=== PATIENT | female | born 1990 | race Caucasian/White ===

== ENCOUNTER 2017-05-09 05:30 | Inpatient (IN) | payer MEDICAID ==
[~2017-05-09] VITALS: Ht 157.5 cm; Wt 87.6 kg
[2017-05-09 06:09] LABS: BASOPHILS # (AUTO) 0.02 K/uL (0.00-0.20); BASOPHILS % (AUTO) 0.3 % (0.0-2.0); EOSINOPHILS # (AUTO) 0.16 K/uL (0.00-0.70); EOSINOPHILS % (AUTO) 1.95 % (1.0-6.0); HEMATOCRIT 38.3 % (36-46); LYMPHOCYTES # (AUTO) 1.8 K/uL (1.0-4.8); MEAN CORPUSCULAR HEMOGLOBIN 28.2 pg (26.0-34.0); MEAN CORPUSCULAR VOLUME 83 fL (80-100); MONOCYTES # (AUTO) 0.4 K/uL (0.1-1.0); MONOCYTES % (AUTO) 5.1 % (2.0-9.0); NEUTROPHILS # (AUTO) 5.8 K/uL (1.8-7.7); NEUTROPHILS % (AUTO) 70.7 % (40.0-70.0); PLATELET COUNT (AUTO) 169 K/uL (150-450); RED BLOOD CELL COUNT(AUTO) 4.62 MIL/uL (4.00-5.20); RED CELL DISTRIBUTION WIDTH 16.7 % (11.5-14.5)
[2017-05-09 06:15] LABS: ANION GAP 6 mmol/L (8-16); CALCIUM, TOTAL 9.1 mg/dL (8.8-10.5); CARBON DIOXIDE 28 mmol/L (22-29); CHLORIDE 102 mmol/L (98-107); CREATININE 0.74 mg/dL (0.60-1.30); GLOMERULAR FILTR. RATE CALC > 60 mL/min (>60); GLUCOSE,RANDOM 94 mg/dL (70-110); POTASSIUM 4.2 mmol/L (3.5-5.1); SODIUM SERUM 136 mmol/L (136-145); UREA NITROGEN, BLOOD 13 mg/dL (7-18)
[2017-05-09 06:19] LABS: ALANINE AMINOTRANSFERASE 32 U/L (12-78); ALBUMIN 3.8 g/dL (3.4-5.0); ALKALINE PHOSPHATASE 82 U/L (46-116); ASPARTATE AMINOTRANSFERASE 20 U/L (15-37); BILIRUBIN,TOTAL 0.7 mg/dL (0.1-1.0)
[2017-05-09 07:22] LABS: AMPHET/METH SCREEN,URINE NEGATIVE (NEGATIVE); BARBITURATE SCREEN, URINE NEGATIVE (NEGATIVE); BENZODIAZEPINES SCREEN,URINE NEGATIVE (NEGATIVE); CANNABINOID SCREEN,URINE POSITIVE (NEGATIVE); COCAINE SCREEN,URINE NEGATIVE (NEGATIVE); METHADONE SCREEN, URINE NEGATIVE (NEGATIVE); OPIATE SCREEN,URINE NEGATIVE (NEGATIVE)
[2017-05-09 07:27] LABS: PHENCYCLIDINE SCREEN,URINE NEGATIVE (NEGATIVE)
[2017-05-09] MEDS ORDERED: ZOLPIDEM TARTRATE 10 MG TABLET PO PRN (08:15)
[2017-05-09] MEDS ORDERED: HALOPERIDOL 5 MG TABLET PO PRN (08:15)
[2017-05-09 13:44] VITALS: BP 114/80
[2017-05-09] MEDS ORDERED: PNEUMOCOCCAL VACCINE POLYVALENT 0.5 ML VIAL [PPSV23] IM ONE (15:15)
[2017-05-09] MEDS ORDERED: INFLUENZA VIRUS VACCINE QVS 2017-18 (3YR+)/PF 60 MCG/0.5 ML SYRINGE IM ONE (15:15)
[2017-05-09 16:00] VITALS: BP 116/70
[2017-05-09] MEDS ORDERED: PETROLATUM,WHITE 71 GM JELLY TP PRN (20:45)
[2017-05-10 00:42] VITALS: BP 119/71
[2017-05-10 08:33] VITALS: BP 115/63
[2017-05-10 09:11] LABS: CHOL/HDL RATIO 3.8 (3.9-5.7)
[2017-05-10 16:00] VITALS: BP 114/71
[2017-05-10] MEDS: LORazepam 2 MG TABLET PO PRN (17:44)
[2017-05-11 06:33] VITALS: BP 106/61
[2017-05-11 08:25] VITALS: BP 115/60
[2017-05-11] MEDS: FLUoxetine HCL 10 MG CAPSULE PO SCH (15:00)
[2017-05-11 16:16] VITALS: BP 115/76
[2017-05-11] MEDS: LORazepam 2 MG TABLET PO PRN (18:53)
[2017-05-12 06:46] VITALS: BP 102/65
[2017-05-12 08:33] VITALS: BP 114/65
[2017-05-12] MEDS: FLUoxetine HCL 10 MG CAPSULE PO SCH (08:55)
[2017-05-12] MEDS ORDERED: PROZ10 PO (10:39)
== END 2017-05-12 11:35 | disposition home or self-care (01) | DRG 751 ==
LOC: EMS 05:31 → B2S 08:48
PROVIDERS: ADMIT Psychiatry & Neurology Child & Adolescent Psychiatry; ATTEND Psychiatry & Neurology Child & Adolescent Psychiatry
PROC: 3E0234Z Introduction of Serum, Toxoid and Vaccine into Muscle, Percutaneous Approach (ICD-10-PCS; principal; 2017-05-09)
DX: F33.2 Major depressive disorder, recurrent severe without psychotic features (principal); R45.851 Suicidal ideations; F41.9 Anxiety disorder, unspecified; G47.00 Insomnia, unspecified; F19.10 Other psychoactive substance abuse, uncomplicated; F60.3 Borderline personality disorder; Z23 Encounter for immunization; Z91.5 Personal history of self-harm
CPT/HCPCS: 90471; 99285; G0480